=== PATIENT | female | born 1965 | race African-American/Black ===

== ENCOUNTER 2017-01-22 09:33 | Emergency (ER) | payer BC ==
[~2017-01-22] VITALS: Ht 177.8 cm; Wt 90.7 kg
--- NOTE | ~2017-01-22 | EKG ---
[address] [place] [address] ELECTROCARDIOGRAM REPORT Name: JAQUANLEONCIO R Room #: 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 : 1965 Requested By: Jacquie Main Order Number: [id number] MD: Sarkis Bianchi Measurements Intervals [place] Rate: 82 P: 66 [place]: 162 QRS: 38 QRSD: 100 T: 20 QT: 373 QTc: 436 Interpretive Statements Sinus rhythm RSR' in V1 or V2, probably normal variant Baseline wander in lead(s) II,III,aVR,aVF Compared to ECG 08/19/2015 23:48:42 No significant change was found Electronically Signed On 01-23-2017 13:46:05 CDT by Sarkis Bianchi [email or web address] <ELECTRONICALLY SIGNED> By: Sarkis Bianchi MD, [facility] 01/23/17 [phone] Sarkis Bianchi MD, [facility] /EPI
[~2017-01-22 09:33] MED LIST: ALEVE220 MG PO; CARAFATE 1 GM TA1 G1 PO; CEPASTAT CHERR18 TA2 PO; CEPHALEXIN 500500 M3 PO; COLACE100 MG PO; DENIES; FAMOTIDINE PO; FLEXERIL PO; IBUPROFEN 200200 M1; IBUPROFEN 600600 M1 PO; KEFLEX500 MG PO; METHIMAZOLE5 MG PO; METHOCARBAMOL500 M2 PO; MILK OF MA400 MG/5 M PO; MIRALAX17 GM PO; NAPROSYN500 MG PO; NORCO 5-325 TA1 EACH PO; PEPCID20 MG PO; POLYMYXIN B/TMP10 ML OP; PROTONIX40 M1 PO; PROTONIX40 M3 PO; SENNA PO; SENOKOT-S1 TA1 PO; ULTRAM 50MG TAB50 MG PO; XARELTO15 MG PO; XARELTO20 MG PO
[2017-01-22 09:57] LABS: ABSOLUTE NEUTROPHILS 3.6 thou/uL (1.4-8.2); BASOPHILS 0.6 % (0.0-2.0); HEMATOCRIT 38.9 % (37.0-47.0); MCH 30.5 pg (26.0-34.0); MCHC 33.4 g/dL (28.0-37.0); MCV 91.5 fL (80.0-100.0); MONOCYTES 5.3 % (1.0-8.0); PLATELET COUNT 294 thou/uL (150-400); POLYS 54.1 % (36.0-66.0); RBC 4.25 mil/uL (4.20-5.00); RDW 13.4 % (10.5-14.5); WBC 6.7 thou/uL (4.0-11.0)
[2017-01-22 10:02] LABS: MANUAL DIFF NO
[2017-01-22 10:08] LABS: ANION GAP 8 mmol/L (7-16); BUN 8 mg/dL (7-18); CALCIUM 9.5 mg/dL (8.5-10.1); CHLORIDE 103 mmol/L (98-107); CO2 27 mmol/L (21-32); CREATININE 0.9 mg/dL (0.6-1.0); GLUCOSE 112 mg/dL (74-106); POTASSIUM 3.8 mmol/L (3.5-5.1); SODIUM 138 mmol/L (136-145)
[2017-01-22 10:16] LABS: TROPONIN-I < 0.04 ng/mL (<0.04-0.07)
[2017-01-22] MEDS ORDERED: NORCO 5-325 TA1 EACH PO (10:37)
== END 2017-01-22 11:21 | disposition home or self-care (01) ==
LOC: ER 09:33
PROVIDERS: Emergency Medicine
DX: R07.9 Chest pain, unspecified (principal); M54.5 Low back pain; E03.9 Hypothyroidism, unspecified; Z90.710 Acquired absence of both cervix and uterus; Z86.711 Personal history of pulmonary embolism

== ENCOUNTER 2017-08-26 02:20 | Inpatient (IN) | payer BC ==
[2017-08-26] VITALS (9 sets, daily range): BP systolic 94–149; BP diastolic 60–120
[~2017-08-26] VITALS: Ht 177.8 cm; Wt 89.8 kg
--- NOTE | ~2017-08-26 | EKG ---
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 08/26/17822 023 023 Sarkis Bianchi MD, [facility] /EPI
[2017-08-26 02:57] LABS: ABSOLUTE NEUTROPHILS 3.7 thou/uL (1.4-8.2); BASOPHILS 0.5 % (0.0-2.0); EOSINOPHILS 1.4 % (0.0-3.0); HEMATOCRIT 39.6 % (37.0-47.0); HEMOGLOBIN 13.3 gm/dL (12.0-15.0); LYMPHOCYTES 45.4 % (24.0-44.0); MCH 30.1 pg (26.0-34.0); MCHC 33.7 g/dL (28.0-37.0); MCV 89.3 fL (80.0-100.0); PLATELET COUNT 321 thou/uL (150-400); POLYS 47.7 % (36.0-66.0); RBC 4.44 mil/uL (4.20-5.00); RDW 12.6 % (10.5-14.5); WBC 7.9 thou/uL (4.0-11.0)
[2017-08-26 03:05] LABS: ANION GAP 7 mmol/L (7-16); BUN 10 mg/dL (7-18); CALCIUM 9.8 mg/dL (8.5-10.1); CHLORIDE 101 mmol/L (98-107); CO2 28 mmol/L (21-32); CREATININE 0.9 mg/dL (0.6-1.0); GLUCOSE 128 mg/dL (74-106); POTASSIUM 3.3 mmol/L (3.5-5.1); SODIUM 136 mmol/L (136-145)
[2017-08-26] MEDS ORDERED: VITAMIN D3400 UNIT PO (03:09)
[2017-08-26] MEDS ORDERED: AMITRIPTYLINE H25 M2 PO (03:10)
[2017-08-26 03:12] LABS: APTT 30.4 Seconds (24.5-32.8); D-DIMER 1.35 ug/mLFEU (0.19-0.50); INR 1.1; PROTIME 11.2 Seconds (9.3-11.4)
[2017-08-26 03:14] LABS: ALBUMIN 4.1 g/dL (3.4-5.0); MAGNESIUM 2.3 mg/dL (1.8-2.4); SGOT 17 U/L (15-37); SGPT 26 U/L (30-65); TOTAL BILIRUBIN 1.1 mg/dL (<0.1-1.0); TOTAL PROTEIN 8.8 g/dL (6.4-8.2); TROPONIN-I < 0.04 ng/mL (<0.06)
[2017-08-26] MEDS ORDERED: KEFLEX500 M1 PO (04:59)
[2017-08-26 08:37] LABS: CHOLESTEROL 267 mg/dL (<200); HDL CHOLESTEROL 75 mg/dL (>40); LDL CHOLESTEROL 183 mg/dL (<100); TC:HDL 3.6 Ratio (Not establshd); TRIGLYCERIDE 45 mg/dL (<150); VLDL 9 mg/dL (<40)
[2017-08-27 00:09] LABS: GLYCOHEMOGLOBIN (HGB A1C) 4.9 % (4.8-5.6)
[2017-08-27 03:55] LABS: HEMOGLOBIN 12.4 gm/dL (12.0-15.0); RBC 4.17 mil/uL (4.20-5.00); WBC 6.4 thou/uL (4.0-11.0)
[2017-08-27 03:57] LABS: ABSOLUTE NEUTROPHILS 2.8 thou/uL (1.4-8.2); EOSINOPHILS 2.3 % (0.0-3.0); LYMPHOCYTES 47.1 % (24.0-44.0); MCH 29.8 pg (26.0-34.0); MCHC 33.5 g/dL (28.0-37.0); MCV 88.9 fL (80.0-100.0); MONOCYTES 5.8 % (1.0-8.0); PLATELET COUNT 271 thou/uL (150-400); POLYS 43.8 % (36.0-66.0); RDW 12.9 % (10.5-14.5)
[2017-08-27 04:09] LABS: CALCIUM 9.4 mg/dL (8.5-10.1); CREATININE 0.9 mg/dL (0.6-1.0); MAGNESIUM 2.4 mg/dL (1.8-2.4); POTASSIUM 4.1 mmol/L (3.5-5.1)
[2017-08-27 05:29] VITALS: BP 113/81
[2017-08-27 07:54] VITALS: BP 123/82
[2017-08-27] MEDS ORDERED: METHIMAZOLE5 MG PO (09:04)
[2017-08-27] MEDS ORDERED: LOPRESSOR25 PO (09:04)
[2017-08-27 10:00] VITALS: BP 123/82
== END 2017-08-27 11:23 | disposition home or self-care (01) | DRG 149 ==
LOC: ER 02:20 → 2N 05:14 → EROBS 05:14 → 2N 05:52
PROVIDERS: Emergency Medicine; Nurse Practitioner
DX: R42 Dizziness and giddiness (principal); E03.9 Hypothyroidism, unspecified; F41.9 Anxiety disorder, unspecified; E05.90 Thyrotoxicosis, unspecified without thyrotoxic crisis or storm; G62.9 Polyneuropathy, unspecified; G89.29 Other chronic pain; F32.9 Major depressive disorder, single episode, unspecified; M54.9 Dorsalgia, unspecified; E87.5 Hyperkalemia; R00.0 Tachycardia, unspecified; Z90.710 Acquired absence of both cervix and uterus; Z86.711 Personal history of pulmonary embolism; Z91.14 Patient's other noncompliance with medication regimen
CPT/HCPCS: 10081

== ENCOUNTER 2017-11-21 09:28 | Emergency (ER) | payer BC ==
[~2017-11-21] VITALS: Ht 177.8 cm; Wt 89.8 kg
--- NOTE | ~2017-11-21 | EKG ---
[place] [address] [address] [facility] [place] [address] ELECTROCARDIOGRAM REPORT Name: LEONCIO PARTIDA [facility] [id number] Admission: 11/21/17 Attend Phys: Discharge: 11/21/17 Date of : 61 Report #: [id number] THIS REPORT FOR: //name// 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: CECILIO : 1965 Requested By: Pop Herrera Order Number: [id number] MD: Sarkis Bianchi Measurements Intervals [place] Rate: 66 P: 22 SD: 166 QRS: 47 QRSD: 99 T: 30 QT: 400 QTc: 420 Interpretive Statements Sinus rhythm RSR' in V1 or V2, probably normal variant Compared to ECG 08/26/2017 02:32:05 Sinus tachycardia no longer present Electronically Signed On 11-22-2017 14:07:15 CDT by Sarkis Bianchi [email or web address] <ELECTRONICALLY SIGNED> By: Sarkis Bianchi MD, [facility] 11/22/17 [phone] Sarkis Bianchi MD, [facility] /EPI
[~2017-11-21 09:28] MED LIST changes: +AMITRIPTYLINE H25 M2 PO; +KEFLEX500 M1 PO; +LOPRESSOR25 PO; +VITAMIN D3400 UNIT PO
[2017-11-21 11:08] LABS: ABSOLUTE NEUTROPHILS 4.2 thou/uL (1.4-8.2); BASOPHILS 0.7 % (0.0-2.0); EOSINOPHILS 0.6 % (0.0-3.0); HEMATOCRIT 38.6 % (37.0-47.0); HEMOGLOBIN 12.9 gm/dL (12.0-15.0); LYMPHOCYTES 32.7 % (24.0-44.0); MCH 30.3 pg (26.0-34.0); MCHC 33.3 g/dL (28.0-37.0); MCV 91.1 fL (80.0-100.0); MONOCYTES 4.3 % (1.0-8.0); PLATELET COUNT 280 thou/uL (150-400); POLYS 61.7 % (36.0-66.0); RBC 4.24 mil/uL (4.20-5.00); WBC 6.8 thou/uL (4.0-11.0)
[2017-11-21 11:16] LABS: ANION GAP 8 mmol/L (7-16); BUN 12 mg/dL (7-18); CALCIUM 9.6 mg/dL (8.5-10.1); CHLORIDE 103 mmol/L (98-107); CO2 25 mmol/L (21-32); CREATININE 0.9 mg/dL (0.6-1.0); GLUCOSE 111 mg/dL (74-106); POTASSIUM 4.1 mmol/L (3.5-5.1); SODIUM 136 mmol/L (136-145)
[2017-11-21 11:24] LABS: ALBUMIN 4.1 g/dL (3.4-5.0); LIPASE 138 U/L (73-393); SGOT 20 U/L (15-37); SGPT 25 U/L (30-65); TOTAL PROTEIN 8.6 g/dL (6.4-8.2); TROPONIN-I < 0.04 ng/mL (<0.06)
[2017-11-21] MEDS ORDERED: PEPCID20 MG PO (11:29)
== END 2017-11-21 12:08 | disposition home or self-care (01) ==
LOC: ER 09:28
PROVIDERS: Emergency Medicine
DX: R10.13 Epigastric pain (principal); R11.0 Nausea; K59.00 Constipation, unspecified; E03.9 Hypothyroidism, unspecified; Z90.710 Acquired absence of both cervix and uterus

== ENCOUNTER 2018-07-12 01:17 | Emergency (ER) | payer BC ==
[~2018-07-12] VITALS: Ht 177.8 cm; Wt 82.1 kg
[2018-07-12] MEDS ORDERED: VITAMIN D5000 UNIT PO (01:41)
[2018-07-12] MEDS ORDERED: LIPITOR10 MG PO (01:42)
[2018-07-12 02:25] LABS: ABSOLUTE NEUTROPHILS 4.1 thou/uL (1.4-8.2); BASOPHILS 0.9 % (0.0-2.0); EOSINOPHILS 1.4 % (0.0-3.0); HEMATOCRIT 40.1 % (37.0-47.0); HEMOGLOBIN 13.1 gm/dL (12.0-15.0); LYMPHOCYTES 38.5 % (24.0-44.0); MCH 29.6 pg (26.0-34.0); MCHC 32.7 g/dL (28.0-37.0); MCV 90.6 fL (80.0-100.0); MONOCYTES 5.4 % (1.0-8.0); PLATELET COUNT 318 thou/uL (150-400); POLYS 53.8 % (36.0-66.0); RBC 4.43 mil/uL (4.20-5.00); RDW 13.1 % (10.5-14.5); WBC 7.6 thou/uL (4.0-11.0)
[2018-07-12 02:30] LABS: ANION GAP 11 mmol/L (7-16); BUN 13 mg/dL (7-18); CALCIUM 10.1 mg/dL (8.5-10.1); CHLORIDE 101 mmol/L (98-107); CO2 27 mmol/L (21-32); CREATININE 0.8 mg/dL (0.6-1.0); GLUCOSE 108 mg/dL (74-106); POTASSIUM 3.8 mmol/L (3.5-5.1); SODIUM 139 mmol/L (136-145)
[2018-07-12 02:38] LABS: TROPONIN-I <0.06 ng/mL (<0.06)
[2018-07-12 04:45] VITALS: BP 121/74
--- NOTE | 2018-07-12 08:11 | EKG ---
[address] [place] [address] ELECTROCARDIOGRAM REPORT Name: LEONCIO PARTIDA [id number] Admission: 07/12/18 Attend Phys: Discharge: 07/12/18 Date of : 61 Report #: [id number] THIS REPORT FOR: //name// [facility] ED Test Date: 2018-07-12 Test Time: 01:32:34 Pat Name: LEONCIO PARTIDA Department: Room: Gender: F Office Messenger: NIKOLAY : 1965 Requested By: Tigre Mora Order Number: [id number] MD: Sarkis Bianchi Measurements Intervals [place] Rate: 72 P: 72 [place]: 172 QRS: 45 QRSD: 96 T: 24 QT: 388 QTc: 425 Interpretive Statements Sinus rhythm RSR' in V1 or V2, probably normal variant Compared to ECG 11/21/2017 10:33:12 no significant change was found Electronically Signed On 07-12-2018 8:10:54 CENTRAL OFFICE INSTALLER by Sarkis Bianchi [email or web address] <ELECTRONICALLY SIGNED> By: Sarkis Bianchi MD, [facility] 07/12/18 0810 D: [id number] 013 Sarkis Bianchi MD, [facility] /EPI
== END 2018-07-12 04:45 | disposition home or self-care (01) ==
LOC: ER 01:17
PROVIDERS: Emergency Medicine
DX: R07.89 Other chest pain (principal); R06.02 Shortness of breath; F41.9 Anxiety disorder, unspecified; E03.9 Hypothyroidism, unspecified; Z90.710 Acquired absence of both cervix and uterus

== ENCOUNTER 2018-10-06 18:46 | Emergency (ER) | payer BC ==
[~2018-10-06] VITALS: Ht 177.8 cm; Wt 83.9 kg
[2018-10-06 18:46] VITALS: BP 156/74
[~2018-10-06 18:46] MED LIST changes: +LIPITOR10 MG PO; +VITAMIN D5000 UNIT PO
[2018-10-06 19:01] LABS: URINE BILIRUBIN NEGATIVE (Negative); URINE BLOOD 1+ (Negative); URINE CLARITY CLEAR; URINE COLOR YELLOW; URINE GLUCOSE-RANDOM* NEGATIVE (Negative); URINE KETONES NEGATIVE (Negative); URINE LEUKOCYTES-REFLEX TRACE (Negative); URINE NITRITE-REFLEX NEGATIVE (Negative); URINE PROTEIN (DIPSTICK) NEGATIVE (Negative); URINE SPECIFIC GRAVITY <= 1.005 (1.005-1.035); URINE UROBILINOGEN 0.2 E.U./dl (0.2-1.0)
[2018-10-06 19:11] LABS: SQUAMOUS 0-3 Few /LPF (0-3)
[2018-10-06 19:12] LABS: BACTERIA-REFLEX 1-9 Few /HPF (None Seen); CASTS None Seen /LPF (None Seen); CRYSTALS None Seen /LPF (None Seen); URINE RBC 0-2 Rare /HPF (0-2); URINE WBC-REFLEX 0-5 Rare /HPF (0-5)
[2018-10-06 21:40] LABS: ABSOLUTE NEUTROPHILS 3.4 thou/uL (1.4-8.2); BASOPHILS 0.9 % (0.0-2.0); EOSINOPHILS 1.8 % (0.0-3.0); HEMATOCRIT 37.4 % (37.0-47.0); HEMOGLOBIN 12.2 gm/dL (12.0-15.0); LYMPHOCYTES 44.4 % (24.0-44.0); MCH 29.7 pg (26.0-34.0); MCHC 32.6 g/dL (28.0-37.0); MCV 91.1 fL (80.0-100.0); MONOCYTES 4.6 % (1.0-8.0); PLATELET COUNT 285 thou/uL (150-400); POLYS 48.3 % (36.0-66.0); RBC 4.11 mil/uL (4.20-5.00); RDW 13.3 % (10.5-14.5); WBC 7.1 thou/uL (4.0-11.0)
[2018-10-06 21:52] LABS: CALCIUM 10.1 mg/dL (8.5-10.1); CREATININE 0.8 mg/dL (0.6-1.0); POTASSIUM 3.6 mmol/L (3.5-5.1)
[2018-10-06 21:56] LABS: ALBUMIN 4.3 g/dL (3.4-5.0); TOTAL BILIRUBIN 0.9 mg/dL (<0.1-1.0); TOTAL PROTEIN 8.6 g/dL (6.4-8.2)
[2018-10-06] MEDS ORDERED: NORCO 5-325 TA1 EACH PO (22:50)
[2018-10-06] MEDS ORDERED: BACTRIM DS TAB1 EACH PO (22:50)
[2018-10-06] MEDS ORDERED: CYCLOBENZAPRINE5 MG PO (22:50)
== END 2018-10-06 23:30 | disposition home or self-care (01) ==
LOC: ER 18:46
PROVIDERS: Physician Assistant
DX: M51.26 Other intervertebral disc displacement, lumbar region (principal); R10.31 Right lower quadrant pain; Z90.710 Acquired absence of both cervix and uterus; E03.9 Hypothyroidism, unspecified; Z86.711 Personal history of pulmonary embolism

== ENCOUNTER 2019-07-10 07:50 | Emergency (ER) | payer BC ==
[~2019-07-10] VITALS: Ht 177.8 cm; Wt 84.4 kg
--- NOTE | ~2019-07-10 | EKG ---
[facility] [place] [address] ELECTROCARDIOGRAM REPORT Name: LEONCIO PARTIDA Room #: [facility]#: [id number] Admission: 07/10/19 Attend Phys: Discharge: Date of : 61 Report #: [id number] THIS REPORT FOR: cc: Ti Haines MD, Khanh MD Epiphany,Nahun JOHN ~ THIS REPORT FOR: //name// [facility] ED Test Date: 2019-07-10 Test Time: 09:14:31 Pat Name: LEONCIO PARTIDA Department: Room: Gender: F Stage Director: ID : 1965 Requested By: Weston Gómez Order Number: [id number] MD: Measurements Intervals [place] Rate: 73 P: 67 [place]: 167 QRS: 51 QRSD: 84 T: 39 QT: 382 QTc: 421 Interpretive Statements Sinus rhythm Left atrial enlargement RSR' in V1 or V2, probably normal variant Probable left ventricular hypertrophy Baseline wander in lead(s) II Compared to ECG 07/12/2018 01:32:34 Atrial abnormality now present [email or web address] By: 0914 3 Epiphany Epiphany, /EPI
[~2019-07-10 07:50] MED LIST changes: +BACTRIM DS TAB1 EACH PO; +CYCLOBENZAPRINE5 MG PO
[2019-07-10] MEDS ORDERED: TESSALON PERLE100 M1 PO (10:26)
[2019-07-10 10:39] VITALS: BP 126/66
== END 2019-07-10 10:41 | disposition home or self-care (01) ==
LOC: ER 07:50
DX: J06.9 Acute upper respiratory infection, unspecified (principal); E03.9 Hypothyroidism, unspecified; Z90.710 Acquired absence of both cervix and uterus; Z86.711 Personal history of pulmonary embolism

== ENCOUNTER 2019-12-15 18:17 | Emergency (ER) | payer BC ==
[~2019-12-15] VITALS: Ht 177.8 cm; Wt 83.9 kg
[~2019-12-15 18:17] MED LIST changes: +TESSALON PERLE100 M1 PO
[2019-12-15] MEDS ORDERED: OMEPRAZOLE40 MG PO (18:47)
[2019-12-15 19:13] LABS: ABSOLUTE NEUTROPHILS 3.4 thou/uL (1.4-8.2); BASOPHILS 1.1 % (0.0-2.0); EOSINOPHILS 0.9 % (0.0-3.0); HEMATOCRIT 39.2 % (37.0-47.0); HEMOGLOBIN 12.8 gm/dL (12.0-15.0); LYMPHOCYTES 43.7 % (24.0-44.0); MCH 30.2 pg (26.0-34.0); MCHC 32.6 g/dL (28.0-37.0); MCV 92.6 fL (80.0-100.0); MONOCYTES 4.6 % (1.0-8.0); PLATELET COUNT 291 thou/uL (150-400); POLYS 49.7 % (36.0-66.0); RBC 4.23 mil/uL (4.20-5.00); RDW 13.2 % (10.5-14.5); WBC 6.8 thou/uL (4.0-11.0)
[2019-12-15 19:17] LABS: ANION GAP 11 mmol/L (7-16); BUN 11 mg/dL (7-18); CALCIUM 9.3 mg/dL (8.5-10.1); CHLORIDE 100 mmol/L (98-107); CO2 27 mmol/L (21-32); GLUCOSE 102 mg/dL (74-106); POTASSIUM 3.5 mmol/L (3.5-5.1); SODIUM 138 mmol/L (136-145)
[2019-12-15 19:27] LABS: ALBUMIN 4.3 g/dL (3.4-5.0); DIRECT BILIRUBIN 0.2 mg/dL (<0.1-0.2); LIPASE 171 U/L (73-393); SGOT 17 U/L (15-37); SGPT 27 U/L (30-65); TOTAL PROTEIN 7.7 g/dL (6.4-8.2); TROPONIN-I <0.06 ng/mL (<0.06)
[2019-12-16 00:37] LABS: URINE BILIRUBIN NEGATIVE (Negative); URINE BLOOD 1+ (Negative); URINE CLARITY CLEAR; URINE COLOR YELLOW; URINE GLUCOSE-RANDOM* NEGATIVE (Negative); URINE KETONES NEGATIVE (Negative); URINE NITRITE-REFLEX NEGATIVE (Negative); URINE PROTEIN (DIPSTICK) NEGATIVE (Negative); URINE UROBILINOGEN 0.2 E.U./dl (0.2-1.0)
[2019-12-16 00:38] LABS: URINE LEUKOCYTES-REFLEX 1+ (Negative)
[2019-12-16 01:01] LABS: BACTERIA-REFLEX None Seen /HPF (None Seen); CASTS None Seen /LPF (None Seen); CRYSTALS None Seen /LPF (None Seen); MUCUS 0-3 Light strn/LPF (None Seen); SQUAMOUS None Seen /LPF (0-3); URINE RBC 0-2 Rare /HPF (0-2); URINE WBC-REFLEX 0-5 Rare /HPF (0-5)
[2019-12-16 01:20] VITALS: BP 109/68
--- NOTE | 2019-12-17 07:52 | EKG ---
[facility] [place] [address] ELECTROCARDIOGRAM REPORT Name: LEONCIO PARTIDA Room #: [facility]#: [id number] Admission: 12/15/19 Attend Phys: Discharge: 12/16/19 Date of : 61 Report #: [id number] THIS REPORT FOR: cc: JYOTI - Emeli family physician/PCP JYOTI - Emeli family physician/PCP Sarkis Bianchi MD [facility] THIS REPORT FOR: //name// 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1965 Requested By: Leta Ruano Order Number: [id number] MD: Sarkis Bianchi Measurements Intervals [place] Rate: 91 P: 65 [place]: 162 QRS: 41 QRSD: 89 T: 35 QT: 357 QTc: 440 Interpretive Statements Sinus rhythm RSR' in V1 or V2, right VCD Compared to ECG 07/10/2019 09:14:31 No significant change was found Electronically Signed On 12-17-2019 7:52:02 CDT by Sarkis Bianchi [email or web address] <ELECTRONICALLY SIGNED> By: Sarkis Bianchi MD, [facility] 12/17/19 [phone] Sarkis Bianchi MD, [facility] /EPI
== END 2019-12-16 01:21 | disposition home or self-care (01) ==
LOC: ER 18:17
PROVIDERS: Emergency Medicine
DX: R42 Dizziness and giddiness (principal); R07.9 Chest pain, unspecified; R06.00 Dyspnea, unspecified; M79.602 Pain in left arm; M79.605 Pain in left leg; E03.9 Hypothyroidism, unspecified; Z90.710 Acquired absence of both cervix and uterus; Z79.899 Other long term (current) drug therapy

== ENCOUNTER 2020-05-13 09:12 | Emergency (ER) | payer BC ==
[~2020-05-13] VITALS: Ht 177.8 cm; Wt 81.7 kg
[~2020-05-13 09:12] MED LIST changes: +OMEPRAZOLE40 MG PO
[2020-05-13] MEDS ORDERED: OMEPRAZOLE 20 M20 M1 PO (09:27)
[2020-05-13 10:38] LABS: ABSOLUTE NEUTROPHILS 2.4 thou/uL (1.4-8.2); BASOPHILS 0.9 % (0.0-2.0); EOSINOPHILS 1.7 % (0.0-3.0); HEMATOCRIT 39.3 % (37.0-47.0); HEMOGLOBIN 13.1 gm/dL (12.0-15.0); LYMPHOCYTES 41.1 % (24.0-44.0); MCH 30.6 pg (26.0-34.0); MCHC 33.4 g/dL (28.0-37.0); MCV 91.6 fL (80.0-100.0); MONOCYTES 4.2 % (1.0-8.0); PLATELET COUNT 301 thou/uL (150-400); POLYS 52.1 % (36.0-66.0); RBC 4.28 mil/uL (4.20-5.00); RDW 12.8 % (10.5-14.5); WBC 4.7 thou/uL (4.0-11.0)
[2020-05-13 10:44] LABS: CALCIUM 10.2 mg/dL (8.5-10.1); CREATININE 0.8 mg/dL (0.6-1.0); POTASSIUM 4.4 mmol/L (3.5-5.1)
[2020-05-13 10:50] LABS: ALBUMIN 4.2 g/dL (3.4-5.0); TOTAL PROTEIN 8.6 g/dL (6.4-8.2)
[2020-05-13 11:18] LABS: URINE BILIRUBIN NEGATIVE (Negative); URINE BLOOD TRACE (Negative); URINE CLARITY CLEAR; URINE COLOR YELLOW; URINE GLUCOSE-RANDOM* NEGATIVE (Negative); URINE KETONES NEGATIVE (Negative); URINE LEUKOCYTES-REFLEX TRACE (Negative); URINE NITRITE-REFLEX NEGATIVE (Negative); URINE PROTEIN (DIPSTICK) NEGATIVE (Negative)
[2020-05-13] MEDS ORDERED: NORCO 5-325 TA1 EAC2 PO (13:57)
[2020-05-13 14:15] VITALS: BP 106/64
== END 2020-05-13 14:15 | disposition home or self-care (01) ==
LOC: ER 09:12
PROVIDERS: Emergency Medicine
DX: R10.11 Right upper quadrant pain (principal); Z90.710 Acquired absence of both cervix and uterus; Z79.899 Other long term (current) drug therapy